=== PATIENT | male | born 1995 | race Two or more races ===

== ENCOUNTER 2023-03-16 10:53 | Emergency (ER) | payer SELFPAY ==
[~2023-03-16] VITALS: Ht 182.9 cm; Wt 76.0 kg
[2023-03-16 10:58] VITALS: BP 143/92
[2023-03-16] MEDS ORDERED: PENICILLIN G BENZ 600000 UNIT/ML 1ML SYRG IM ONE (13:45)
[2023-03-16] MEDS ORDERED: PENICILLIN G BENZ 1200000 UNITS/2 ML SYRG IM ONE (14:00)
== END 2023-03-16 14:59 | disposition home or self-care (01) ==
LOC: ER 10:53
DX: A51.0 Primary genital syphilis (principal)
CPT/HCPCS: 96372; 99283; J0561